=== PATIENT | female | born 1945 | race Caucasian/White ===

== ENCOUNTER → 2020-06-24 | Outpatient (CLI) | payer MEDICARE, OTHER ==
[~2020-06-24] MED LIST: OMNICEF 300 MG300 MG PO
== END ==
LOC: KOH-I 10:36
DX: M25.571 Pain in right ankle and joints of right foot (principal); M79.671 Pain in right foot; M85.871 Other specified disorders of bone density and structure, right ankle and foot; M77.31 Calcaneal spur, right foot
CPT/HCPCS: 73610; 73630

== ENCOUNTER → 2020-07-22 | Outpatient (CLI) | payer MEDICARE, OTHER | LOC: KOH-I 09:44 | DX: S82.51XA Displaced fracture of medial malleolus of right tibia, initial encounter for closed fracture (principal) | CPT/HCPCS: 73610 ==

== ENCOUNTER → 2020-08-10 | Outpatient (CLI) | payer MEDICARE, OTHER | LOC: KOH-I 08-04 09:00 | DX: M25.571 Pain in right ankle and joints of right foot (principal); M25.471 Effusion, right ankle | CPT/HCPCS: 73721 ==

== ENCOUNTER → 2021-02-08 | Outpatient (CLI) | payer MEDICARE, OTHER | LOC: KOH-I 15:06 | DX: S82.401A Unspecified fracture of shaft of right fibula, initial encounter for closed fracture (principal) | CPT/HCPCS: 73610 ==

== ENCOUNTER → 2021-02-21 | Outpatient (CLI) | payer MEDICARE, OTHER | LOC: KOH-I 09:43 | DX: S82.301K Unspecified fracture of lower end of right tibia, subsequent encounter for closed fracture with nonunion (principal); S93.491A Sprain of other ligament of right ankle, initial encounter | CPT/HCPCS: 73721 ==

== ENCOUNTER → 2021-05-05 | Outpatient (CLI) | payer MEDICARE, OTHER | LOC: KOH-I 14:47 | DX: M84.372D Stress fracture, left ankle, subsequent encounter for fracture with routine healing (principal) | CPT/HCPCS: 73610; 73650 ==

== ENCOUNTER → 2021-05-11 | Outpatient (CLI) | payer MEDICARE, OTHER | LOC: EXRD 05-10 08:30 | DX: Z13.820 Encounter for screening for osteoporosis (principal); M81.0 Age-related osteoporosis without current pathological fracture | CPT/HCPCS: 77080 ==

== ENCOUNTER → 2021-10-07 | Outpatient (CLI) | payer MEDICARE, OTHER ==
[~2021-10-07] VITALS: Ht 162.6 cm; Wt 56.7 kg
== END ==
LOC: EROP 12:50
DX: U07.1 COVID-19 (principal); Z23 Encounter for immunization
CPT/HCPCS: M0222; Q0222

== ENCOUNTER → 2021-10-28 | Outpatient (CLI) | payer MEDICARE, OTHER ==
[~2021-10-28] MED LIST changes: +ALLERGY RELIEF180 MG PO; +CARAFATE1 GM PO; +CONSTULOSE10 GM/15 M PO; +FOLIC ACID; +LEVOTHYROXINE175 MC1 PO; +PROAIR HFA8.5 GM INH; +PROTONIX40 MG PO; +VITAMIN B12; +VITAMIN E
== END ==
LOC: KOH-I 10:41
DX: K59.09 Other constipation (principal); R14.3 Flatulence
CPT/HCPCS: 74018

== ENCOUNTER → 2021-11-01 | Day surgery (SDC) | payer MEDICARE, OTHER | END | disposition home or self-care (01) | LOC: OR 07:49 | DX: K29.50 Unspecified chronic gastritis without bleeding (principal); K21.00 Gastro-esophageal reflux disease with esophagitis, without bleeding; K22.2 Esophageal obstruction; K25.9 Gastric ulcer, unspecified as acute or chronic, without hemorrhage or perforation; K62.9 Disease of anus and rectum, unspecified; K59.09 Other constipation; J45.909 Unspecified asthma, uncomplicated; R56.9 Unspecified convulsions; M19.90 Unspecified osteoarthritis, unspecified site; Z98.890 Other specified postprocedural states; Z86.73 Personal history of transient ischemic attack (TIA), and cerebral infarction without residual deficits; Z91.048 Other nonmedicinal substance allergy status | CPT/HCPCS: J2704; J7040 ==